=== PATIENT | female | born 1960 | race Caucasian/White ===

== ENCOUNTER → 2019-09-08 | Outpatient (CLI) | payer BC ==
[~2019-09-08] MED LIST: HOLD METFORMIN - RECEIVED CONTRAST 20 ML VIAL IV SCH; IOHEXOL 350 MG/ML 100 ML (OMNIPAQUE 350) VIAL IV ONE; NS 100 ML (IVPB) BAG IV ONE
[2019-09-08 14:04] LABS: ALANINE AMINOTRANSFERASE 10 U/L (0-55); ALBUMIN 4.2 GM/DL (3.2-4.5); ALKALINE PHOSPHATASE 81 U/L (40-136); BILIRUBIN,TOTAL 0.3 MG/DL (0.1-1.0); BUN/CREATININE RATIO 29; CALCIUM 9.3 MG/DL (8.5-10.1); CARBON DIOXIDE 26 MMOL/L (21-32); CHLORIDE 102 MMOL/L (98-107); CREATININE SERUM 0.87 MG/DL (0.60-1.30); GFR ESTIMATED > 60; GLUCOSE 101 MG/DL (70-105); POTASSIUM 4.3 MMOL/L (3.6-5.0); SODIUM 138 MMOL/L (135-145); TOTAL PROTEIN 7.6 GM/DL (6.4-8.2)
--- NOTE | 2019-09-08 14:55 | Diagnostic Imaging Report ---
PROCEDURE: CT head with and without contrast. TECHNIQUE: Multiple contiguous axial images were obtained through the brain before and after the administration of intravenous contrast. Auto Exposure Controls were utilized during the CT exam to meet ALARA standards for radiation dose reduction. INDICATION: Elevated testosterone levels. No prior studies are available for comparison. The ventricles and sulci are within normal limits. No sulcal effacement or midline shift is identified. No acute intra-axial or extra-axial hemorrhage is detected. No abnormal enhancement following contrast administration is identified. The sella and suprasellar region is unremarkable. Visualized paranasal sinuses demonstrates some mucosal thickening of ethmoid air cells. IMPRESSION: Mild ethmoid sinus mucosal disease. CT of the brain with and without contrast is otherwise unremarkable. Dictated by: Dictated on workstation # [id number]
== END ==
LOC: RAD 13:23
PROVIDERS: ATTEND Nurse Practitioner Family
DX: Z01.812 Encounter for preprocedural laboratory examination (principal); R79.89 Other specified abnormal findings of blood chemistry; J32.2 Chronic ethmoidal sinusitis; Z86.39 Personal history of other endocrine, nutritional and metabolic disease; Z79.890 Hormone replacement therapy
CPT/HCPCS: 36415; 70470; 80053

== ENCOUNTER 2021-10-27 18:40 | Emergency (ER) | payer BC, OTHER ==
[~2021-10-27] VITALS: Ht 160 cm; Wt 66.6 kg
[2021-10-27] MEDS ORDERED: fentaNYL INJ 100 MCG/2 ML AMP IVP STA (18:49)
[2021-10-27] MEDS ORDERED: ORPHENADRINE 60 MG/2 ML (NORFLEX) AMP (ED ONLY) IVP STA (18:49)
--- NOTE | 2021-10-27 18:56 | ED Back Pain ---
General Chief Complaint: Back Problems Stated Complaint: BACK INJ Source of Information: Patient, EMS History of Present Illness Date Seen by Provider: October 27, 2021 Time Seen by Provider: 18:40 Initial Comments 61-year-old female presenting with complaints of low back pain and pain radiating down both legs. She states this started on October 23. She was cleaning in the shower and felt pain in her back. She was able to rest for a little while and then finished cleaning. 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 She had gone to urgent care after she finished cleaning the house and was unable to get back up after she sat in the chair because the pain was so bad in her back. The had evaluated her and told her that she had a pinched nerve. She was given a steroid and muscle relaxer. She states that they did not give her anything for pain and did not do any imaging. Since she did not have anything for pain she felt like her symptoms were getting worse. She has taken some [id number] rubs and creams to try and help with her muscle spasms and leg pain but they were not helping either. Since her symptoms were more severe and she was unable to get up out of bed due to the pain EMS was activated. She states that she has not lost control of her bowels or her bladder. Location: Lumbar Spine Timing/Duration: 4-5 Days Severity: Severe Pain/Injury Location: Back Radiation: Lower Legs, Upper Legs Method of Injury: Other (Cleaning houses) Modifying Factors: Worse With Movement Associated Symptoms: muscle spasms; No fever, No weakness, No numbness in legs/feet, No tingling in legs/feet, No sensory/motor loss; lower back pain; No loss of bladder control, No loss of bowel control Allergies and Home Medications Allergies Coded Allergies: No Allergy Information Available (Unverified , 09/08/19) Patient Home Medication List Home Medication List Reviewed: Yes Methocarbamol (Methocarbamol) 750 Mg Tablet, 1,500 MG PO Q8H PRN for back pain/muscle spasm Prescribed by: RYNE GUERRERO on 10/27/212014 Oxycodone HCl/Acetaminophen (Oxycodone-Acetaminophen 5-325) 5 Mg-325 Mg Tablet, 1 EACH PO Q4H PRN for PAIN-SEVERE (8-10) Prescribed by: RYNE GUERRERO on 10/27/211936 Review of Systems Constitutional: No chills, No fever EENTM: no symptoms reported Respiratory: no symptoms reported Cardiovascular: no symptoms reported Gastrointestinal: no symptoms reported Genitourinary: no symptoms reported Musculoskeletal: see HPI Skin: No rash Psychiatric/Neurological: Denies Numbness, Denies Paresthesia, Denies Weakness Past Dzhxcws-Fpriec-Udyfws Hx Patient Social History Tobacco Use?: No Substance use?: No Alcohol Use?: No Pt feels they are or have been: No Physical Exam Vital Signs Vital Signs - First Documented 10/27/21 18:43 Temp 36.2 Pulse 91 Resp 18 B/P (MAP) 134/78 (96) Pulse Ox 95 O2 Delivery Room Air Capillary Refill : Height, Weight, BMI Height: '" Weight: lbs. oz. kg; BMI Method: General Appearance: WD/WN, Mild Distress HEENT: PERRL/EOMI, Pharynx Normal Neck: Full Range of Motion, Normal Inspection, Non Tender, Supple Cardiovascular: Regular Rate, Rhythm, Normal Peripheral Pulses Respiratory: Chest Non Tender, Lungs Clear, Normal Breath Sounds, No Accessory Muscle Use, No Respiratory Distress Gastrointestinal: Normal Bowel Sounds, No Pulsatile Mass, Non Tender, Soft Back: No CVA Tenderness, No Vertebral Tenderness Extremity: Normal Capillary Refill, Normal Range of Motion, Non Tender, No Calf Tenderness, No Pedal Edema Neurologic/Psychiatric: Alert, Oriented x3, 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 Norm as Tested Skin: Normal Color, Warm/Dry Progress/Results/Core Measures Results/Orders My Orders Orders - RYNE GUERRERO MD Fentanyl Inj (Sublimaze Injection) (10/27/21 18:49) Orphenadrine Inj (Ed Only) (Norflex Inje (10/27/21 18:49) Ct Lumbar Spine Wo (10/27/21 18:50) Rx-Oxycodone/Apap 5-325 Mg (Rx-Percocet (10/27/21 20:00) Morphine Injection (Morphine Injection (10/27/21 19:56) Medications Given in ED Current Medications Medications Dose Ordered Sig/Anthony Route Start Time Stop Time Status Last Admin Dose Admin Oxycodone/ Acetaminophen 1 ea Q4H PRN PO 10/27/21 20:00 10/27/21 20:07 1 EA Vital Signs/I&O 5/22/22 5/22/22 18:43 20:02 Temp 36.2 Pulse 91 84 Resp 18 16 B/P (MAP) 134/78 (96) 120/76 Pulse Ox 95 94 O2 Delivery Room Air Progress Progress Note #1: Progress Note Ordered repeat dose of fentanyl to follow-up what was given by EMS since the dose from them helped cut her pain down to 5 or 6 out of 10. Add on Norflex for muscle relaxer. CT scan of the lumbar spine to look for acute bony injury Progress Note #2: Progress Note CT shows disc protrusion at L1-L2 level and likely severe spinal canal stenosis. MRI would demonstrate this in better detail. Will discharge to home with return precautions and prescribe pain medicine in addition to the steroid and muscle relaxer she is taking. Encouraged to follow-up with clinic and likely will need referral to labor specialist and MRI. Since she was having no improvement with the muscle relaxer (Baclofen) will try changing to Robaxin (Methacarbamol) Diagnostic Imaging Diagonstic Imaging: CT Plain Films/CT/US/NM/MRI: other (Lumbar spine) Comments NAME: KARLI REID [facility] REC#: [id number] PT STATUS: REG ER : 1960 PHYSICIAN: RYNE GUERRERO MD ADMIT DATE: 10/27/21/ER FS Draft Date of Exam:10/27/21 CT LUMBAR SPINE WO EXAMINATION: CT lumbar spine without contrast. TECHNIQUE: Multiple contiguous axial images were obtained through the lumbar spine without the use of intravenous contrast. Sagittal and coronal reformations were then performed. All CT scans use one or more of the following dose optimizing techniques: automated exposure control, MA and/or KvP adjustment based on patient size and exam type or iterative reconstruction. HISTORY: Low back pain with radiation down both legs since 10/23. COMPARISON: None available. FINDINGS: The alignment of the lumbar spine is normal. Vertebral body heights are normal and no fracture is seen. Facet joints are normal. Disc heights are normal. There is a large disc bulge or disc extrusion at the level of L1-L2 which likely results in severe central canal stenosis. Evaluation is limited without intrathecal contrast on CT. Multilevel mild neural foraminal stenosis. Limited views of the abdomen and pelvis show no soft tissue abnormality. The aorta is normal. IMPRESSION: Likely posterior disc extrusion or disc bulge at L1-L2 which may result in severe central canal stenosis. This would be better evaluated on MRI. Dictated on workstation # [id number] Dict: 10/27/211913 Trans: 10/27/211918 [facility] [id number] Interpreted by: ERIC FERNANDEZ DO Electronically signed by: Reviewed: Reviewed by Me Departure Impression Primary Impression: Bulging of lumbar intervertebral disc Additional Impressions: Lumbar back pain with radiculopathy affecting left lower extremity Lumbar back pain with radiculopathy affecting right lower extremity Strain of lumbar paraspinal muscle Qualified Codes: S39.012A - Strain of muscle, fascia and tendon of lower back, initial encounter Lumbar canal stenosis Qualified Codes: M48.061 - Spinal stenosis, lumbar region without neurogenic claudication Disposition: HOME, SELF-CARE Condition: Stable Departure-Patient Inst. Decision time for Depature: 19:33 Referrals: NO,LOCAL PHYSICIAN (PCP) Primary Care Physician TANIA DONALD APRN (Family) Primary Care Physician Patient Instructions: Low Back Pain ED, Muscle Strain ED, Radiculopathy, Spinal Stenosis (DC), Using Cold for Pain Add. Discharge Instructions: Continue on the medicine that you have from urgent care. Use the narcotic pain medication for more severe pain. Follow-up with the clinic for continued control of your symptoms and to schedule an MRI and referral to a labor specialist. All discharge instructions reviewed with patient and/or family. Voiced understanding. Scripts Methocarbamol (Methocarbamol) 750 Mg Tablet 1500 MG PO Q8H PRN for back pain/muscle spasm for 7 Days, #42 TAB 0 Refills Prov: RYNE GUERRERO MD 10/27/21 Oxycodone HCl/Acetaminophen (Oxycodone-Acetaminophen 5-325) 5 Mg-325 Mg Tablet 1 EACH PO Q4H PRN for PAIN-SEVERE (8-10) MDD 6 for 4 Days, #20 TAB 0 Refills Prov: RYNE GUERRERO MD 10/27/21 RYNE GUERRERO MD October 27, 2021 18:56
--- NOTE | 2021-10-27 19:20 | Diagnostic Imaging Report ---
EXAMINATION: CT lumbar spine without contrast. TECHNIQUE: Multiple contiguous axial images were obtained through the lumbar spine without the use of intravenous contrast. Sagittal and coronal reformations were then performed. All CT scans use one or more of the following dose optimizing techniques: automated exposure control, MA and/or KvP adjustment based on patient size and exam type or iterative reconstruction. HISTORY: Low back pain with radiation down both legs since 10/23. COMPARISON: None available. FINDINGS: The alignment of the lumbar spine is normal. Vertebral body heights are normal and no fracture is seen. Facet joints are normal. Disc heights are normal. There is a large disc bulge or disc extrusion at the level of L1-L2 which likely results in severe central canal stenosis. Evaluation is limited without intrathecal contrast on CT. Multilevel mild neural foraminal stenosis. Limited views of the abdomen and pelvis show no soft tissue abnormality. The aorta is normal. IMPRESSION: Likely posterior disc extrusion or disc bulge at L1-L2 which may result in severe central canal stenosis. This would be better evaluated on MRI. Dictated by: Dictated on workstation # [id number]
[2021-10-27] MEDS ORDERED: OXYC1TAB11 PO (19:36)
[2021-10-27] MEDS ORDERED: morphine INJ 10 MG/ML 1ML (SYR OR VIAL) IVP STA (19:56)
[2021-10-27] MEDS ORDERED: RX-OXYCODONE/APAP 5-325 MG #4 TAB PK PO PRN (20:00)
[2021-10-27 20:02] VITALS: BP 120/76
[2021-10-27] MEDS ORDERED: METH-732 PO (20:15)
== END 2021-10-27 20:09 | disposition home or self-care (01) ==
LOC: EDUNIT# 18:40 → ER FS 18:41
DX: S39.012A Strain of muscle, fascia and tendon of lower back, initial encounter (principal); M48.061 Spinal stenosis, lumbar region without neurogenic claudication; M51.06 Intervertebral disc disorders with myelopathy, lumbar region; M54.16 Radiculopathy, lumbar region; M79.661 Pain in right lower leg; M79.662 Pain in left lower leg; X58.XXXA Exposure to other specified factors, initial encounter; Y92.002 Bathroom of unspecified non-institutional (private) residence as the place of occurrence of the external cause; Y93.E5 Activity, floor mopping and cleaning; Y99.0 Civilian activity done for income or pay
CPT/HCPCS: 72131

== ENCOUNTER → 2022-05-27 | Outpatient (CLI) | payer OTHER, MEDICAID ==
[~2022-05-27] MED LIST changes: -HOLD METFORMIN - RECEIVED CONTRAST 20 ML VIAL IV SCH; -IOHEXOL 350 MG/ML 100 ML (OMNIPAQUE 350) VIAL IV ONE; +METH-732 PO; -NS 100 ML (IVPB) BAG IV ONE; +OXYC1TAB11 PO
--- NOTE | 2022-05-27 19:18 | Diagnostic Imaging Report ---
PROCEDURE: US Bilateral lower extremity arterial. TECHNIQUE: Multiple real-time grayscale images are obtained through both lower extremity arterial systems with color Doppler imaging and color Doppler spectral analysis. INDICATION: Bilateral lower extremity swelling COMPARISON: None FINDINGS: Right lower extremity: The right common femoral artery has a biphasic waveform and measures 109 cm/s. The deep femoral artery has a triphasic waveform and measures 71 cm/s. The SFA has a triphasic waveform proximally and midportion with a biphasic waveform distally. Velocities range between 81 and 96 cm/s. The popliteal artery has a triphasic waveform and measures 56 cm/s. The posterior tibial artery has a biphasic waveform and measures 38 cm/s. The dorsalis pedis is labeled as the distal posterior tibial artery, but has a monophasic waveform and measures 20 cm/s. The anterior tibial artery has a biphasic waveform and measures 46 cm/s. Left lower extremity: The left common femoral artery has a triphasic waveform and measures 120 cm/s. The deep femoral artery has a triphasic waveform and measures 76 cm/s. The superficial femoral artery has a triphasic waveform proximally and measures 88 cm/s. The mid and distal portions have a monophasic waveform and measures 82 and 75 cm/s, respectively. The popliteal artery has a monophasic waveform and measures 32 cm/s. The posterior tibial artery has a monophasic waveform and measures 92 cm/s. The dorsalis pedis has a monophasic waveform and measures 55 cm/s. The anterior tibial artery has a monophasic waveform and measures 96 cm/s. IMPRESSION: 1. Monophasic waveform in the right dorsalis pedis. No focal occlusion or high-grade stenosis is seen in the right lower extremity. 2. Monophasic waveforms in the left lower extremity beginning at the mid SFA. A focal high-grade stenosis or occlusion is not identified. Dictated by: Dictated on workstation # [id number]
== END ==
LOC: RAD FS 12:51
PROVIDERS: ATTEND Nurse Practitioner Family
DX: M79.89 Other specified soft tissue disorders (principal); R60.0 Localized edema
CPT/HCPCS: 93925

== ENCOUNTER → 2022-06-03 | Outpatient (CLI) | payer OTHER, MEDICAID ==
--- NOTE | 2022-06-03 15:50 | Diagnostic Imaging Report ---
PROCEDURE: US Venous Lower Ext Anthony. TECHNIQUE: Multiple real-time grayscale images were obtained over the lower extremities in various projections, bilaterally. Additional duplex Doppler and color Doppler images were also obtained. INDICATION: Leg swelling The veins of the lower extremity symptoms good color filling and compressibility. There is phasic flow and a normal response to augmentation. IMPRESSION: Negative venous Doppler lower extremities Dictated by: Dictated on workstation # [id number]
== END ==
LOC: RAD FS 14:58
PROVIDERS: ATTEND Nurse Practitioner Family
DX: R79.89 Other specified abnormal findings of blood chemistry (principal); R60.0 Localized edema
CPT/HCPCS: 93970

== ENCOUNTER → 2023-02-24 | Outpatient (CLI) | payer MEDICAID | LOC: CARD 10:50 | PROVIDERS: ATTEND Internal Medicine Nephrology | DX: I10 Essential (primary) hypertension (principal); N17.9 Acute kidney failure, unspecified; R22.43 Localized swelling, mass and lump, lower limb, bilateral | CPT/HCPCS: 93306 ==